=== PATIENT | male | born 1995 | race Caucasian/White ===

== ENCOUNTER 2021-02-13 02:22 | Emergency (ER) | payer MEDICAID ==
[~2021-02-13] VITALS: Ht 165.1 cm; Wt 77.6 kg
[2021-02-13 02:29] VITALS: BP 137/85
--- NOTE | 2021-02-13 02:30 | NUR ---
PT AMBULATED TO BED 12.
[2021-02-13] MEDS ORDERED: LIDOCAINE/EPI 1% 1:100000 20 ML VIAL INJ ONE (03:25)
--- NOTE | 2021-02-13 04:34 | NUR ---
AT BEDSIDE FOR SUTURES
[2021-02-13 05:10] VITALS: BP 137/85
--- NOTE | 2021-02-13 05:24 | NUR ---
The patient's care was reviewed and supervised by MALLIKA LUCIA RN.
== END 2021-02-13 05:10 | disposition left against medical advice (07) ==
LOC: MED 02:22
DX: S01.412A Laceration without foreign body of left cheek and temporomandibular area, initial encounter (principal); S01.01XA Laceration without foreign body of scalp, initial encounter; W10.9XXA Fall (on) (from) unspecified stairs and steps, initial encounter; Y93.89 Activity, other specified; Y92.89 Other specified places as the place of occurrence of the external cause; Y99.8 Other external cause status
CPT/HCPCS: 12002; 12013; 90471; 90715; 99284; J2001

== ENCOUNTER 2021-06-21 09:54 | Emergency (ER) | payer MEDICAID ==
[~2021-06-21] VITALS: Ht 162.6 cm; Wt 74.8 kg
[2021-06-21 09:58] VITALS: BP 147/87
--- NOTE | 2021-06-21 10:05 | NUR ---
PT AMBULATED TO ER BED 3 WITH A STEADY GAIT.
--- NOTE | 2021-06-21 10:06 | NUR ---
PT AMBULATED TO RESTROOM FOR UA COLLECTION.
--- NOTE | 2021-06-21 10:20 | NUR ---
UA SAMPLE WALKED TO LAB AT THIS TIME.
--- NOTE | 2021-06-21 10:21 | NUR ---
DR. CARDENAS AT PT BEDSIDE FOR FURTHER EVALUATION.
--- NOTE | 2021-06-21 10:24 | NUR ---
26 MALE C/O PENILE DISCAHRGE X 4 DAYS WITH DYSURIA, FREQUENCY, AND GREEN-WHITE DISCHARGE PRESENT. DENIES FEVER/CHILLS. DENIES N/V/D. PMH: TREATED STD 4 MONTHS AGO [facility]
[2021-06-21] MEDS ORDERED: cefTRIAXone 500 MG in LIDOCAINE MPF 1% 1 ML IM ONE (10:30)
[2021-06-21] MEDS ORDERED: DOXY-690 PO (10:32)
[2021-06-21] MEDS ORDERED: cefTRIAXone 500 MG VIAL ONE (10:35)
[2021-06-21] MEDS ORDERED: LIDOCAINE MPF 1% 5 ML ONE (10:36)
[2021-06-21 10:57] LABS: APPEARANCE,URINE HAZY (CLEAR); BILIRUBIN,URINE 1+ (NEGATIVE); BLOOD, URINE 2+ (NEGATIVE); COLOR,URINE YELLOW (YELLOW); LEUKOCYTE ESTERASE ,URINE 1+ (NEGATIVE); NITRITE, URINE POSITIVE (NEGATIVE); UGLUCOSE NEGATIVE (NEGATIVE)
[2021-06-21 11:07] VITALS: BP 147/87
--- NOTE | 2021-06-21 11:07 | NUR ---
Patient discharged with v/s stable. Written and verbal after care instructions given FOR CHLAMYDIA AND GONORRHREA and explained. Patient alert, oriented and verbalized understanding of instructions. Ambulatory with steady gait. All questions addressed prior to discharge. ID band removed. Patient advised to follow up with PMD. Rx of VIBRAMYCIN given. Patient educated on indication of medication including possible reaction and side effects. Opportunity to ask questions provided and answered.
[2021-06-21 12:29] LABS: RBC,URINE 11-20 (MOD) /HPF (0-5); WBC,URINE 16-25 (MOD) /HPF (0-5)
[2021-06-21 12:30] LABS: CALCIUM OXALATE CRYSTALS,UR None Seen /HPF (None Seen); COARSE GRANULAR CASTS,URINE None Seen /LPF (None Seen); FINE GRANULAR CASTS,URINE None Seen /LPF (None Seen); HYALINE CASTS, URINE None Seen /LPF (None Seen); OTHER CASTS, URINE None Seen /LPF (None Seen); OTHER CRYSTALS,URINE None Seen /HPF (None Seen); RED BLOOD CELL CASTS,URINE None Seen /LPF (None Seen); TRICHOMONAS,URINE None Seen /HPF (None Seen); TRIPLE PHOSPHATE CRYSTAL,UR None Seen /HPF (None Seen); URIC ACID CRYSTALS,URINE None Seen /HPF (None Seen); URINE AMORPHOUS URATE None Seen /HPF (None Seen); WAXY CASTS,URINE None Seen /LPF (None Seen); YEAST,URINE None Seen /HPF (None Seen)
--- NOTE | 2021-06-24 08:18 | NUR ---
LATE ENTRY. POSITIVE RESULT FOR CHLAMYDIA AND GONORRHEA. DR CUELLO SIGNED DISCREPANCY LOG, TREATMENT PROVIDED WAS APPROPRIATE. ATTEMPTED TO CALL PT BUT HIS MOTHER ANSWERED AND STATED HE IS NOT AVAILABLE. PROVIDED PHONE NUMBER TO HAVE PT CALL BACK.
== END 2021-06-21 11:07 | disposition home or self-care (01) ==
LOC: MED 09:54
DX: S01.112D Laceration without foreign body of left eyelid and periocular area, subsequent encounter (principal); R30.0 Dysuria; R35.0 Frequency of micturition; F17.210 Nicotine dependence, cigarettes, uncomplicated; Z76.0 Encounter for issue of repeat prescription; X58.XXXD Exposure to other specified factors, subsequent encounter
CPT/HCPCS: 36415; 81001; 87086; 87491; 96372; 99283; J0696; J2001

== ENCOUNTER 2021-08-28 03:42 | Emergency (ER) | payer MEDICAID ==
[~2021-08-28] VITALS: Ht 162.6 cm; Wt 80.3 kg
[~2021-08-28 03:42] MED LIST: DOXY-690 PO
[2021-08-28 03:56] VITALS: BP 121/98
--- NOTE | 2021-08-28 03:59 | NUR ---
PT AMBULATED TO BED #5
[2021-08-28] MEDS ORDERED: methylPREDNISolone SS 125 MG in WATER STERILE 2 ML IV ONE (04:10)
[2021-08-28] MEDS ORDERED: CLINDAMYCIN 600 MG in DEXTROSE 5% 50 ML IV ONE (04:10)
--- NOTE | 2021-08-28 04:20 | NUR ---
CALLED [facility] AND [facility] FOR TRANSFER AND DENIED DUE TO [facility] CALLED AND F/S AND H&P FAXED TO [facility]
--- NOTE | 2021-08-28 04:32 | NUR ---
AWAIT H+P COMPLETION FROM [facility] TO FAX TO [facility]
--- NOTE | 2021-08-28 05:13 | NUR ---
H+P FAXED TO [facility]
[2021-08-28] MEDS ORDERED: methylPREDNISolone SS 125 MG/2 ML VIAL ONE (05:15)
[2021-08-28] MEDS ORDERED: CLINDAMYCIN 600 MG/4 ML VIAL ONE (05:15)
[2021-08-28 05:21] LABS: BASOPHILS # (AUTO) 0.1 K/uL (0.00-0.22); BASOPHILS % (AUTO) 1.1 % (0.0-2.0); EOSINOPHILS # (AUTO) 0.2 K/uL (0-0.4); EOSINOPHILS % (AUTO) 2.9 % (0.0-4.0); HEMATOCRIT 43.1 % (36-52); HEMOGLOBIN 14.7 g/dL (12.0-18.0); LYMPHOCYTES # (AUTO) 2.2 K/uL (2.0-11.5); LYMPHOCYTES % (AUTO) 39.2 % (20.5-51.1); MEAN CORPUSCULAR HEMOGLOBIN 29 pg (27-31); MEAN CORPUSCULAR HGB CONC 34 g/dL (33-37); MEAN CORPUSCULAR VOLUME 85.9 fL (80-94); MONOCYTES # (AUTO) 0.5 K/uL (0.8-1.0); MONOCYTES % (AUTO) 9.5 % (1.7-9.3); NEUTROPHILS # (AUTO) 2.7 K/uL (1.8-7.7); NEUTROPHILS % (AUTO) 47.3 % (42.2-75.2); PLATELET COUNT (AUTO) 273 K/uL (140-450); RED BLOOD CELL COUNT(AUTO) 5.02 MIL/uL (4.20-6.10); RED CELL DISTRIBUTION WIDTH 12.8 % (11.6-13.7); WHITE BLOOD COUNT (AUTO) 5.7 K/uL (4.8-10.8)
[2021-08-28] MEDS ORDERED: CLIN300C52 PO (05:29)
[2021-08-28] MEDS ORDERED: TOBDEXOS RIGHT EYE (05:29)
--- NOTE | 2021-08-28 05:36 | NUR ---
[facility] [place] CALLED BACK AND DECLINED TRANSFER DUE TO OPTHAMOLOGY AT [facility] DEEMING CASE OUTPATIENT MATTER
[2021-08-28 05:47] LABS: ALBUMIN 4.1 g/dL (3.4-5.0); CARBON DIOXIDE 31.3 mmol/L (21-32); POTASSIUM 3.3 mmol/L (3.5-5.1); TOTAL BILIRUBIN 0.4 mg/dL (0.0-1.0)
--- NOTE | 2021-08-28 05:50 | NUR ---
26 YO MALE BIBS W C/O RT EYE PAIN SINCE FRIDAY. +BLURRED VISION. WHITE SPOT NOTED IN EYE MEDHX- DENIES NKDA
== END 2021-08-28 06:10 | disposition home or self-care (01) ==
LOC: MED 03:42
DX: H44.001 Unspecified purulent endophthalmitis, right eye (principal); F17.210 Nicotine dependence, cigarettes, uncomplicated; F12.10 Cannabis abuse, uncomplicated
CPT/HCPCS: 36415; 80053; 83605; 85025; 87040; 90471; 90715; 96365; 96375; 99284; J2930; J3490